=== PATIENT | male | born 1980 | race Caucasian/White ===

== ENCOUNTER 2018-03-09 21:49 | Emergency (ER) | payer MEDICAID ==
[~2018-03-09] VITALS: Ht 160 cm; Wt 65.0 kg
[~2018-03-09 21:49] MED LIST: NAPR-681 PO; TRAM50TA3 PO
[2018-03-09] MEDS ORDERED: IBUPROFEN 600MG TABLET PO ONE (23:15)
[2018-03-10 00:57] VITALS: BP 103/66
== END 2018-03-10 00:57 | disposition home or self-care (01) ==
LOC: ER 21:49
DX: R51 Headache (principal); R20.0 Anesthesia of skin
CPT/HCPCS: 99284